=== PATIENT | male | born 1990 | race African-American/Black ===

== ENCOUNTER 2019-02-03 22:15 | Emergency (ER) | payer OTHER ==
[2019-02-03 22:20] VITALS: BMI 26.4
[2019-02-03] MEDS ORDERED: SODIUM CHLORIDE 0.9% 500 ML INFUS.BAG IV ONE (23:53)
[2019-02-03] MEDS ORDERED: ONDANSETRON 4 MG/2 ML VIAL IVPUSH ONE (23:53)
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
[2019-02-04] MEDS ORDERED: ONDANSETRON 4 MG/2 ML VIAL ONE ×2 (00:18→00:37)
[2019-02-04 00:38] LABS: BASO % 0.4 % (0-2.0); HEMATOCRIT 43.7 % (35.4-49); HEMOGLOBIN 13.9 GM/dL (11.7-16.9); RBC 5.96 M/mm3 (4.00-5.60); WHITE BLOOD COUNT 7.8 K/mm3 (4.0-10.0)
[2019-02-04 00:42] LABS: EOS % 0.1 % (0-4.5); LYMPH % 30.7 % (8-40); MCH 23.3 pg (25.7-33.7); MCHC 31.7 g/dl (32.0-35.9); MEAN CELL VOLUME 73.5 fl (80-96); MEAN PLT VOLUME 7.9 fl (7.5-11.1); MONO % 4.8 % (3.8-10.2); PLATELET COUNT 360 K/MM3 (134-434); RDW 14.6 % (11.9-15.9)
[2019-02-04 00:59] LABS: ALBUMIN 4.6 g/dl (3.4-5.0); BILIRUBIN,TOTAL 0.9 mg/dL (0.2-1); BLOOD UREA NITROGEN 13.6 mg/dL (7-18); CALCIUM 9.6 mg/dL (8.5-10.1); CREATININE 1.4 mg/dL (0.55-1.3); MAGNESIUM 1.9 mg/dL (1.8-2.4); POTASSIUM 4.4 mmol/L (3.5-5.1); TOT PROT 8.7 g/dl (6.4-8.2)
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
[2019-02-04 06:38] VITALS: BP 127/71; PULSE 83; TEMP 97.9
== END 2019-02-04 06:38 | disposition home or self-care (01) ==
LOC: JER 22:15
PROC: 3E033GC Introduction of Other Therapeutic Substance into Peripheral Vein, Percutaneous Approach (ICD-10-PCS; principal; 2019-02-03)
PROC: 3E0337Z Introduction of Electrolytic and Water Balance Substance into Peripheral Vein, Percutaneous Approach (ICD-10-PCS; 2019-02-03)
DX: R11.2 Nausea with vomiting, unspecified (principal)
CPT/HCPCS: 36415; 74176-TC; 76705-TC; 80053; 83690; 83735; 85025; 99284-25

== ENCOUNTER 2021-03-08 19:13 | Emergency (ER) | payer OTHER ==
[2021-03-08] MEDS ORDERED: LORazepam 2 MG/ML SDV VIAL IVPUSH ONE (19:15)
[2021-03-08] MEDS ORDERED: LORazepam 2 MG/ML SDV VIAL ONE (19:22)
[2021-03-08 19:32] VITALS: BMI 26.4
[2021-03-08 19:45] LABS: BASO % 0.8 % (0-2.0); EOS % 1.7 % (0-4.5); HEMATOCRIT 40.1 % (35.4-49); HEMOGLOBIN 12.9 GM/dL (11.7-16.9); LYMPH % 46.9 % (8-40); MCH 23.4 pg (25.7-33.7); MCHC 32.1 g/dl (32.0-35.9); MEAN CELL VOLUME 72.9 fl (80-96); MEAN PLT VOLUME 7.6 fl (7.5-11.1); MONO % 8.9 % (3.8-10.2); NEUT % 41.7 % (42.8-82.8); PLATELET COUNT 331 10^3/uL (134-434); RDW 15.1 % (11.9-15.9); WHITE BLOOD COUNT 9.5 K/mm3 (4.0-10.0)
[2021-03-08 19:52] LABS: INR 1.03 (0.83-1.09); PROTHROMBIN TIME (PATIENT) 12.7 SEC (9.7-13.0)
[2021-03-08 20:13] LABS: ALBUMIN 4.2 g/dl (3.4-5.0); CALCIUM 9.5 mg/dL (8.5-10.1)
[2021-03-08 20:14] LABS: BLOOD UREA NITROGEN 16.9 mg/dL (7-18)
[2021-03-08 20:16] LABS: CREATININE 1.6 mg/dL (0.55-1.3)
[2021-03-08 20:18] LABS: BILIRUBIN,TOTAL 0.5 mg/dL (0.2-1); TOT PROT 7.9 g/dl (6.4-8.2)
[2021-03-08 20:27] LABS: LACTIC ACID 7.3 mmol/L (0.4-2.0)
[2021-03-08] MEDS ORDERED: SODIUM CHLORIDE 0.9% 500 ML INFUS.BAG IV ONE (21:03)
[2021-03-08 21:52] VITALS: PULSE 75
[2021-03-08 22:19] VITALS: BP 114/72
[2021-03-08 22:22] VITALS: TEMP 98.5
== END 2021-03-09 00:42 | disposition short-term general hospital (02) ==
LOC: JER 19:13
PROC: 3E033GC Introduction of Other Therapeutic Substance into Peripheral Vein, Percutaneous Approach (ICD-10-PCS; principal; 2021-03-08)
DX: R56.9 Unspecified convulsions (principal)
CPT/HCPCS: 36415; 70450-TC; 80053; 82962; 83605; 85025; 85610; 86850; 86900; 86901; 93005; 93010; 99285-25; C9803; U0003; U0005

== ENCOUNTER 2021-05-04 15:50 | Emergency (ER) | payer OTHER ==
[2021-05-04 16:06] VITALS: BP 124/84; PULSE 71; TEMP 98.3; BMI 26.4
== END 2021-05-04 17:20 | disposition home or self-care (01) ==
LOC: JER 15:50
DX: R56.9 Unspecified convulsions (principal)
CPT/HCPCS: 99283-25

== ENCOUNTER 2022-07-18 15:16 | Inpatient (IN) | payer OTHER ==
[2022-07-18] MEDS ORDERED: LORazepam 2 MG/ML SDV VIAL IVPUSH ONE (15:20)
[2022-07-18] MEDS ORDERED: MIDAZOLAM HCL 5 MG/1 ML Single Dose Vial ONE (15:21)
[2022-07-18 15:36] VITALS: BMI 28.7
[2022-07-18 16:22] LABS: BASO % 0.6 % (0-2.0); EOS % 1.2 % (0-4.5); HEMATOCRIT 43.9 % (35.4-49); HEMOGLOBIN 13.8 GM/dL (11.7-16.9); LYMPH % 48.4 % (8-40); MCHC 31.4 g/dl (32.0-35.9); MEAN PLT VOLUME 7.7 fl (7.5-11.1); MONO % 8.2 % (3.8-10.2); NEUT % 41.6 % (42.8-82.8); PLATELET COUNT 389 10^3/uL (134-434); RBC 6.01 M/mm3 (4.00-5.60); RDW 14.5 % (11.9-15.9); WHITE BLOOD COUNT 7.4 K/mm3 (4.0-10.0)
[2022-07-18 16:36] LABS: CHLORIDE 101 mmol/L (98-107); SODIUM 140 mmol/L (136-145)
[2022-07-18 16:41] LABS: ALBUMIN 4.4 g/dl (3.4-5.0); ANION GAP 11 MMOL/L (8-16); BLOOD UREA NITROGEN 15.3 mg/dL (7-18); CALCIUM 10.3 mg/dL (8.5-10.1); CO2 28 mmol/L (21-32); GLUCOSE,RANDOM 101 mg/dL (74-106); MAGNESIUM 2.1 mg/dL (1.8-2.4)
[2022-07-18 16:44] LABS: CHOLESTEROL 193 mg/dL (50-200); CREATININE 1.4 mg/dL (0.55-1.3); PHOSPHOROUS 3.7 mg/dL (2.5-4.9); SGOT/AST 48 U/L (15-37); SGPT/ALT 30 U/L (13-61); TRIGLYCERIDES 123 mg/dL (0-150)
[2022-07-18 16:45] LABS: BILIRUBIN,TOTAL 0.9 mg/dL (0.2-1); LDL CHOLESTEROL (ONLY SJRH) 115 mg/dL (5-100)
[2022-07-18 16:46] LABS: ALK PHOS 88 U/L (45-117); TOT PROT 8.4 g/dl (6.4-8.2)
[2022-07-18 16:46] LABS: VENOUS BASE EXCESS 2.6 mmol/L (-2-2); VENOUS PCO2 52.8 mmHg (38-52); VENOUS PH 7.36 (7.310-7.410)
[2022-07-18 16:47] LABS: HDL CHOLESTEROL 71 mg/dL (40-60)
[2022-07-18] MEDS ORDERED: LACTATED RINGERS SOLUTION 1000 ML INFUS.BAG IV ONE (16:49)
[2022-07-18 16:55] LABS: PH,URINE 6.5 (5.0-8.0); URINE APPEARANCE CLEAR; URINE BILIRUBIN NEGATIVE (NEGATIVE); URINE COLOR YELLOW; URINE GLUCOSE (UA) NEGATIVE (NEGATIVE); URINE KETONE NEGATIVE (NEGATIVE); URINE LEUK ESTERASE NEGATIVE (NEGATIVE); URINE NITRITE NEGATIVE (NEGATIVE); URINE PROTEIN NEGATIVE (NEGATIVE); URINE UROBILINOGEN 0.2 mg/dL (0.2-1.0)
[2022-07-18 17:08] LABS: INR 1.09 (0.83-1.09); PROTHROMBIN TIME (PATIENT) 12.6 SEC (9.7-13.0)
[2022-07-18 17:10] LABS: ACTIVATED PTT 33.5 SECONDS (25.2-36.5)
[2022-07-18] MEDS ORDERED: SODIUM CHLORIDE 1,000 ML IV SCH (21:30)
[2022-07-19 04:05] LABS: PHENCYCLIDINE,URINE NEGATIVE (NEGATIVE); URINE BENZODIAZEPINES NEGATIVE (NEGATIVE)
[2022-07-19 04:06] LABS: COCAINE, UR NEGATIVE (NEGATIVE); METHADONE, UR NEGATIVE (NEGATIVE); OPIATES, URI NEGATIVE (NEGATIVE)
[2022-07-19 04:53] LABS: URINE AMPHETAMINES NEGATIVE (NEGATIVE); URINE BARBITURATES NEGATIVE (NEGATIVE)
[2022-07-19 05:13] VITALS: TEMP 98.6
[2022-07-19 08:05] LABS: BASO % 0.7 % (0-2.0); EOS % 2.2 % (0-4.5); HEMATOCRIT 41.2 % (35.4-49); LYMPH % 38.9 % (8-40); MCH 22.9 pg (25.7-33.7); MCHC 31.5 g/dl (32.0-35.9); MEAN CELL VOLUME 72.8 fl (80-96); MEAN PLT VOLUME 7.9 fl (7.5-11.1); MONO % 7.6 % (3.8-10.2); NEUT % 50.6 % (42.8-82.8); PLATELET COUNT 352 10^3/uL (134-434); RBC 5.66 M/mm3 (4.00-5.60); RDW 14.3 % (11.9-15.9); WHITE BLOOD COUNT 5.9 K/mm3 (4.0-10.0)
[2022-07-19 08:20] LABS: CALCIUM 9.2 mg/dL (8.5-10.1)
[2022-07-19 08:21] LABS: ALBUMIN 3.8 g/dl (3.4-5.0); BLOOD UREA NITROGEN 16.5 mg/dL (7-18)
[2022-07-19 08:22] LABS: BILIRUBIN,TOTAL 0.5 mg/dL (0.2-1)
[2022-07-19 08:23] LABS: TOT PROT 7.1 g/dl (6.4-8.2)
[2022-07-19 08:24] LABS: CREATININE 1.4 mg/dL (0.55-1.3); PHOSPHOROUS 4.2 mg/dL (2.5-4.9)
[2022-07-19 09:04] VITALS: BP 108/73; PULSE 75; RESP 16
[2022-07-19] MEDS ORDERED: busPIRone HCL 5 MG TABLET ONE (09:22)
[2022-07-19] MEDS ORDERED: ENOXAPARIN NA (PORCINE) 40 MG/0.4 ML DISP.SYRIN SQ SCH (10:00)
[2022-07-19] MEDS ORDERED: busPIRone HCL 10 MG TABLET (FP) PO SCH (10:00)
== END 2022-07-19 12:37 | disposition home or self-care (01) | DRG 111 ==
LOC: JER 15:16 → JERBED 20:54
PROVIDERS: ADMIT Internal Medicine; ATTEND Internal Medicine
DX: H81.10 Benign paroxysmal vertigo, unspecified ear (principal); I10 Essential (primary) hypertension; F41.9 Anxiety disorder, unspecified; M62.82 Rhabdomyolysis; R51.9 Headache, unspecified; E86.0 Dehydration; R41.82 Altered mental status, unspecified; E87.5 Hyperkalemia; H81.20 Vestibular neuronitis, unspecified ear
CPT/HCPCS: 0241U-QW; 36415; 70450-TC; 70496-TC; 70498-TC; 71045-TC-FY; 76775-TC; 80053; 80061; 80307; 81003; 82550; 82553; 82803; 83605; 83735; 84100; 84443; 84484; 85025; 85610; 85730; 86850; 86900; 86901; 99285-25